=== PATIENT | female | born 1990 | race Caucasian/White ===

== ENCOUNTER → 2021-08-27 | Outpatient (CLI) | payer OTHER ==
[~2021-08-27] MED LIST: BACTRIM DS TAB1 EACH PO; MIRALAX17 GM PO
== END ==
LOC: SLEEP 14:00
DX: G47.33 Obstructive sleep apnea (adult) (pediatric) (principal)
CPT/HCPCS: 95810

== ENCOUNTER 2021-09-07 09:34 | Emergency (ER) | payer OTHER ==
[~2021-09-07 09:34] MED LIST changes: -MIRALAX17 GM PO
[2021-09-07 09:54] LABS: HEMOGLOBIN 14.7 gm/dl (12.3-15.3); RED BLOOD COUNT 4.62 M/UL (4.00-5.10); WHITE BLOOD COUNT 6.7 K/UL (4.5-11.0)
[2021-09-07 10:25] LABS: BUN/CREATININE RATIO 31 (0-10)
[2021-09-07] MEDS ORDERED: MIRALAX17 GM PO (12:20)
== END 2021-09-07 12:35 | disposition home or self-care (01) ==
LOC: ER1 09:34
PROVIDERS: Emergency Medicine
DX: K59.00 Constipation, unspecified (principal); F17.210 Nicotine dependence, cigarettes, uncomplicated
CPT/HCPCS: 80053; 81001; 83690; 84703; 85025; 96374; 96375; 99284; J1885; J2405; Q9967